=== PATIENT | female | born 1995 | race African-American/Black ===

== ENCOUNTER 2022-06-25 01:46 | Emergency (ER) | payer OTHER ==
[~2022-06-25] VITALS: Ht 167.6 cm; Wt 62.6 kg
[2022-06-25 01:54] VITALS: BP 123/70
--- NOTE | 2022-06-25 02:00 | NUR ---
MOE FOR MED REFILL
[2022-06-25] MEDS ORDERED: VALA10002 PO (02:53)
--- NOTE | 2022-06-25 02:57 | NUR ---
Patient discharged to home in stable condition. RX Written and verbal after care instructions given. Patient verbalizes understanding of instruction. pt ambulatory with a steady gait
== END 2022-06-25 02:58 | disposition home or self-care (01) ==
LOC: ER 01:52
DX: Z76.0 Encounter for issue of repeat prescription (principal); B00.1 Herpesviral vesicular dermatitis; Z60.2 Problems related to living alone; Z79.899 Other long term (current) drug therapy

== ENCOUNTER 2023-05-17 11:40 | Emergency (ER) | payer OTHER ==
[~2023-05-17] VITALS: Ht 167.6 cm; Wt 68.0 kg
[~2023-05-17 11:40] MED LIST: VALA10002 PO
[2023-05-17] MEDS ORDERED: ONDANSETRON HCL/PF 4 MG/2 ML VIAL IVP ONE (12:30)
[2023-05-17] MEDS ORDERED: IV NS 0.9% 1,000 ML BAG IV ONE (12:30)
[2023-05-17] MEDS ORDERED: ONDANSETRON HCL/PF 4 MG/2 ML VIAL ONE (12:44)
[2023-05-17 12:46] LABS: BASOPHILS % (AUTO) 0.5 % (0.0-2.0); EOSINOPHILS % (AUTO) 0.1 % (0.0-6.0); HEMATOCRIT 38 % (33-45); LYMPHOCYTES # (AUTO) 0.9 K/uL (0.8-4.8); LYMPHOCYTES % (AUTO) 12.3 % (20.0-44.0); MEAN CORPUSCULAR HGB CONC 34 g/dl (31.0-36.0); MEAN CORPUSCULAR VOLUME 83 fL (82-100); MONOCYTES # (AUTO) 0.4 K/uL (0.1-1.30); MONOCYTES % (AUTO) 5.4 % (2.0-12.0); NEUTROPHILS # (AUTO) 6.1 K/uL (1.8-8.9); NEUTROPHILS % (AUTO) 81.7 % (43.0-81.0); PLATELET COUNT (AUTO) 194 K/uL (150-450); RED BLOOD CELL COUNT(AUTO) 4.63 MIL/uL (4.0-5.2); WHITE BLOOD COUNT (AUTO) 7.4 K/uL (4.3-11.0)
[2023-05-17 13:02] LABS: BILIRUBIN,URINE NEGATIVE (NEGATIVE); COLOR,URINE YELLOW (YELLOW); LEUKOCYTE ESTERASE ,URINE NEGATIVE (NEGATIVE); NITRITE, URINE NEGATIVE (NEGATIVE); PH,URINE 6.5 (5.0-8.0); PROTEIN,URINE NEGATIVE (NEGATIVE); UGLUCOSE TRACE mg/dL (NEGATIVE); UROBILINOGEN,URINE 0.2 EU/dL (0.2)
[2023-05-17 13:03] LABS: BACTERIA,URINE Rare /HPF (None Seen); SQUAMOUS EPITHELIAL CELL,UR Few /HPF (None Seen); WBC,URINE 0-2 /HPF (0-3)
[2023-05-17 13:11] LABS: CALCIUM, SERUM 9.4 mg/dL (8.5-10.1); CREATININE 0.8 mg/dL (0.6-1.3); POTASSIUM 3.5 mmol/L (3.5-5.1)
[2023-05-17 13:15] LABS: ALBUMIN 3.9 g/dL (3.4-5.0); BILIRUBIN,DIRECT 0.1 mg/dL (0.0-0.2); BILIRUBIN,TOTAL 0.7 mg/dL (0.2-1.0); TOTAL PROTEIN, SERUM 7.5 g/dL (6.4-8.2)
[2023-05-17] MEDS ORDERED: KETOROLAC TROMETHAMINE INJ 30 MG/ML VIAL IV ONE (13:30)
[2023-05-17] MEDS ORDERED: KETOROLAC TROMETHAMINE INJ 30 MG/ML VIAL ONE (13:32)
[2023-05-17] MEDS ORDERED: ONDA4TAB11 PO (14:17)
--- NOTE | 2023-05-17 14:32 | NUR ---
Patient discharged to home in stable condition. Written and verbal after care instructions given. Patient verbalizes understanding of instruction. IV removed. Catheter intact and site benign. Pressure and 4x4 applied to site. No bleeding noted.
[2023-05-17 14:36] VITALS: BP 120/82; TEMP 98.2
== END 2023-05-17 14:36 | disposition home or self-care (01) ==
LOC: ER 11:44
DX: R11.2 Nausea with vomiting, unspecified (principal); Z60.2 Problems related to living alone
CPT/HCPCS: 99284; 96374; 96361; 96375; 85025; 80048; 83690; 80076; 84703; 81001; 36415; J1885; J2405; J7030

== ENCOUNTER 2024-12-05 15:48 | Emergency (ER) | payer OTHER ==
[~2024-12-05] VITALS: Ht 167.6 cm; Wt 59.0 kg
[~2024-12-05 15:48] MED LIST changes: +ONDA4TAB11 PO
[2024-12-05] MEDS ORDERED: ONDANSETRON HCL/PF 4 MG/2 ML VIAL ONE (16:58)
[2024-12-05] MEDS ORDERED: KETOROLAC TROMETHAMINE 15 MG/ML VIAL ONE (16:58)
[2024-12-05] MEDS: IV NS 0.9% 1,000 ML BAG IV ONE (17:09)
[2024-12-05] MEDS: KETOROLAC TROMETHAMINE 15 MG/ML VIAL IV ONE (17:10)
[2024-12-05] MEDS: ONDANSETRON HCL/PF 4 MG/2 ML VIAL IVP ONE (17:10)
[2024-12-05 17:20] LABS: BASOPHILS % (AUTO) 0.1 % (0.0-2.0); EOSINOPHILS % (AUTO) 0.1 % (0.0-6.0); HEMATOCRIT 38 % (33-45); HEMOGLOBIN 13.2 g/dL (11.5-14.8); LYMPHOCYTES # (AUTO) 0.8 K/uL (0.8-4.8); LYMPHOCYTES % (AUTO) 10.6 % (20.0-44.0); MEAN CORPUSCULAR HEMOGLOBIN 30 PG (26.0-33.0); MEAN CORPUSCULAR HGB CONC 34 g/dl (31.0-36.0); MEAN CORPUSCULAR VOLUME 86 fL (82-100); MONOCYTES # (AUTO) 0.3 K/uL (0.1-1.30); MONOCYTES % (AUTO) 3.6 % (2.0-12.0); NEUTROPHILS # (AUTO) 6.5 K/uL (1.8-8.9); NEUTROPHILS % (AUTO) 85.6 % (43.0-81.0); PLATELET COUNT (AUTO) 180 K/uL (150-450); RED BLOOD CELL COUNT(AUTO) 4.45 MIL/uL (4.0-5.2); RED CELL DISTRIBUTION WIDTH 13.4 % (11.5-15.0); WHITE BLOOD COUNT (AUTO) 7.6 K/uL (4.3-11.0)
[2024-12-05 17:30] LABS: CALCIUM, SERUM 8.8 mg/dL (8.5-10.1); CREATININE 0.6 mg/dL (0.6-1.3); POTASSIUM 4.2 mmol/L (3.5-5.1)
[2024-12-05 17:57] VITALS: BP 105/78; TEMP 97.7; O2SAT 97
== END 2024-12-05 17:57 | disposition home or self-care (01) ==
LOC: ER 17:27
DX: R11.2 Nausea with vomiting, unspecified (principal); N94.6 Dysmenorrhea, unspecified; Z60.2 Problems related to living alone
CPT/HCPCS: 99284; 96374; 96361; 96375; 85025; 80048; 36415; 84702; J1885; J2405; J7030

== ENCOUNTER 2025-01-03 06:11 | Emergency (ER) | payer OTHER ==
[~2025-01-03] VITALS: Ht 167.6 cm; Wt 59.0 kg
[2025-01-03] MEDS ORDERED: ONDANSETRON HCL/PF 4 MG/2 ML VIAL ONE (06:38)
[2025-01-03] MEDS ORDERED: KETOROLAC TROMETHAMINE 15 MG/ML VIAL ONE (06:38)
[2025-01-03] MEDS: IV NS 0.9% 500 ML BAG IV ONE (06:48)
[2025-01-03] MEDS: ONDANSETRON HCL/PF 4 MG/2 ML VIAL IVP ONE (06:48)
[2025-01-03] MEDS: KETOROLAC TROMETHAMINE 15 MG/ML VIAL IV ONE (06:48)
[2025-01-03] MEDS ORDERED: NAPR-1164 PO (06:53)
[2025-01-03] MEDS ORDERED: ONDA4TAB11 PO (06:53)
[2025-01-03 07:19] VITALS: BP 110/75; TEMP 98.1; O2SAT 99
== END 2025-01-03 07:20 | disposition home or self-care (01) ==
LOC: ER 06:13
DX: N94.6 Dysmenorrhea, unspecified (principal); Z60.2 Problems related to living alone
CPT/HCPCS: 99284; 96374; 96375; J1885; J2405; J7040

== ENCOUNTER 2025-10-29 19:37 | Emergency (ER) | payer OTHER ==
[~2025-10-29] VITALS: Ht 162.6 cm; Wt 68.0 kg
[~2025-10-29 19:37] MED LIST changes: +NAPR-1164 PO
[2025-10-29] MEDS ORDERED: KETOROLAC TROMETHAMINE 15 MG/ML VIAL ONE (20:34)
[2025-10-29] MEDS ORDERED: PANTOPRAZOLE 40 MG VIAL ONE (20:34)
[2025-10-29] MEDS ORDERED: ONDANSETRON HCL/PF 4 MG/2 ML VIAL ONE (20:34)
[2025-10-29] MEDS ORDERED: FAMOTIDINE/PF INJ 20 MG/2 ML VIAL IV ONE (20:35)
[2025-10-29 20:43] LABS: PLATELET COUNT (AUTO) 174 K/uL (150-450); RED BLOOD CELL COUNT(AUTO) 4.72 MIL/uL (4.0-5.2); RED CELL DISTRIBUTION WIDTH 13.5 % (11.5-15.0); WHITE BLOOD COUNT (AUTO) 5.1 K/uL (4.3-11.0)
[2025-10-29] MEDS: FAMOTIDINE/PF INJ 20 MG/2 ML VIAL IV ONE (20:50)
[2025-10-29] MEDS: PANTOPRAZOLE 40 MG VIAL IV ONE (20:50)
[2025-10-29] MEDS: KETOROLAC TROMETHAMINE 15 MG/ML VIAL IV ONE (20:50)
[2025-10-29] MEDS: ONDANSETRON HCL/PF 4 MG/2 ML VIAL IV ONE (20:50)
[2025-10-29 20:51] LABS: CALCIUM, SERUM 8.5 mg/dL (8.5-10.1); CREATININE 0.7 mg/dL (0.6-1.3); SODIUM SERUM 140.0 mmol/L (136-145); UREA NITROGEN, BLOOD 13.0 mg/dL (7-18)
[2025-10-29] MEDS: IV NS 0.9% 1,000 ML BAG IV ONE (20:55)
[2025-10-29 20:57] LABS: INR 1.03 (0.91-1.10)
[2025-10-29 21:04] LABS: ASPARTATE AMINOTRANSFERASE 21.0 U/L (15-37); TOTAL PROTEIN, SERUM 7.1 g/dL (6.4-8.2)
[2025-10-29 21:13] LABS: APPEARANCE,URINE CLOUDY (CLEAR)
[2025-10-29 21:15] LABS: PREGNANCY TEST URINE QUAL NEGATIVE (NEGATIVE)
[2025-10-29 21:28] LABS: SQUAMOUS EPITHELIAL CELL,UR 0-2 /HPF (None Seen)
[2025-10-29] MEDS ORDERED: POTASSIUM CHLORIDE 20 MEQ TAB.PRT.SR PO ONE (21:39)
[2025-10-29] MEDS ORDERED: ONDA4TAB5 PO (21:42)
[2025-10-29] MEDS ORDERED: KETO10TA2 PO (21:42)
[2025-10-29] MEDS ORDERED: ACET325T53 PO (21:42)
[2025-10-29] MEDS: POTASSIUM CHLORIDE 20 MEQ TAB.PRT.SR PO ONE (21:43)
[2025-10-29 21:57] VITALS: BP 124/67; TEMP 97.9; O2SAT 96
== END 2025-10-29 21:58 | disposition home or self-care (01) ==
LOC: ER 19:44
DX: N94.6 Dysmenorrhea, unspecified (principal); R11.0 Nausea; R06.02 Shortness of breath; R10.20 Pelvic and perineal pain unspecified side; Z60.2 Problems related to living alone
CPT/HCPCS: 99284; 96374; 96375; 96361; 85025; 80048; 83690; 80076; 84703; 81001; 36415; 85730; 84702; J1885; J1308; J2405; J7030; J2470